=== PATIENT | male | born 1985 | race African-American/Black ===

== ENCOUNTER 2017-05-21 02:32 | Emergency (ER) | payer OTHER ==
[~2017-05-21] VITALS: Ht 180.3 cm; Wt 106.6 kg
[~2017-05-21 02:32] MED LIST: BENTYL10 MG PO; MOTRIN800 MG PO; TRAMADOL HCL50 MG PO; VIBRA-TAB100 MG PO; VICODIN 5/500 505 MG PO
[2017-05-21] MEDS ORDERED: Motrin,Rufen800 MG PO (02:54)
[2017-05-21] MEDS ORDERED: CLINDAMYCIN HC300 MG PO (02:54)
== END 2017-05-21 03:34 | disposition home or self-care (01) ==
LOC: ED 02:32
DX: K04.01 Reversible pulpitis (principal); K02.9 Dental caries, unspecified; F17.200 Nicotine dependence, unspecified, uncomplicated

== ENCOUNTER 2018-04-13 13:38 | Emergency (ER) | payer OTHER ==
[~2018-04-13] VITALS: Ht 182.8 cm; Wt 106.6 kg
[~2018-04-13 13:38] MED LIST changes: +CLINDAMYCIN HC300 MG PO; +Motrin,Rufen800 MG PO
[2018-04-13 15:41] LABS: HEMATOCRIT 40.5 % (42.0-52.0); HEMOGLOBIN 13.7 g/dl (14.0-18.0); MEAN CORPUSCULAR HGB 29.8 pg (27.0-31.0); MEAN CORPUSCULAR HGB CONC 33.8 g/dl (33.0-37.0); MEAN PLATELET VOLUME 11.1 fl (9.6-12.3); PLATELET COUNT AUTOMATED 252 10*3/uL (130-400); RED CELL DISTRI WIDTH 12.3 % (0-14.5); WHITE BLOOD COUNT 10.2 10*3/uL (4.8-10.8)
[2018-04-13 15:51] LABS: BILIRUBIN NEGATIVE (NEGATIVE); BLOOD TRACE-INTACT (NEGATIVE); CLARITY SL CLOUDY (CLEAR); COLOR YELLOW (YELLOW); GLUCOSE NEGATIVE (NEGATIVE); KETONE TRACE (NEGATIVE); LEUKO ESTERASE 1+ (NEGATIVE); NITRITE NEGATIVE (NEGATIVE); SPECIFIC GRAVITY 1.025 (1.005-1.030)
[2018-04-13 15:58] LABS: ALKALINE PHOSPHATASE 70 U/L (45-117); BUN 13 mg/dl (7-24); CHLORIDE 104 mmol/L (98-107); CREATININE 0.96 mg/dL (0.70-1.30); POTASSIUM 3.5 mmol/L (3.5-5.1); SGOT/AST 32 IU/L (3-35); SGPT/ALT 70 U/L (12-78); SODIUM 137 mmol/L (136-145)
[2018-04-13 15:59] LABS: TOTAL PROTEIN 7.5 gm/dL (6.4-8.2)
[2018-04-13 16:00] LABS: BACTERIA 1+; MUCOUS 1+
[2018-04-13 16:02] LABS: WBC 41-50 wbc/hpf (0-5)
[2018-04-13 16:06] LABS: PLATELET SUFFICIENCY NORMAL (NORMAL); TOTAL CELLS COUNTED 100 #CELLS
[2018-04-13] MEDS ORDERED: SEPTDS PO (16:25)
== END 2018-04-13 17:31 | disposition home or self-care (01) ==
LOC: ED 13:38
PROVIDERS: Nurse Practitioner
DX: N39.0 Urinary tract infection, site not specified (principal); R31.9 Hematuria, unspecified; F17.200 Nicotine dependence, unspecified, uncomplicated; Z88.6 Allergy status to analgesic agent